=== PATIENT | female | born 1995 | race Caucasian/White ===

== ENCOUNTER 2020-12-19 10:30 | Emergency (ER) | payer MEDICAID ==
[~2020-12-19] VITALS: Ht 160 cm; Wt 66.3 kg
[2020-12-19] MEDS ORDERED: SODIUM CHLORIDE 0.9% 1,000ML IVBOLUS ONE (11:00)
--- NOTE | 2020-12-19 11:12 | NUR ---
RN and MD assessment completed. IV started and NS 1 liter bolus started.
[2020-12-19 11:14] LABS: BASOPHILS % (AUTO) 1 % (0-1); EOSINOPHILS % (AUTO) 0 % (1-7); LYMPHOCYTES % (AUTO) 25 % (22-44); MEAN CORPUSCULAR HEMOGLOBIN 31.1 pg (27.0-34.8); MEAN CORPUSCULAR HGB CONC 34.5 g/dL (32.4-35.8); MEAN PLATELET VOLUME 8.9 fL (7.4-10.4); MONOCYTES % (AUTO) 11 % (2-9); NEUTROPHILS % (AUTO) 64 % (42-75); PLATELET COUNT 248 x10^3/uL (130-400); RED BLOOD COUNT 4.19 x10^6/uL (3.82-5.3); RED CELL DISTRIBUTION WIDTH 13.5 % (9.6-15.2)
[2020-12-19 11:15] LABS: ALANINE AMINOTRANSFERASE 91 U/L (12-78); ANION GAP 11 mmol/L (5-15); CALCIUM 8.6 mg/dL (8.5-10.1); CHLORIDE 107 mmol/L (98-107); CREATININE 0.54 mg/dL (0.55-1.02)
[2020-12-19 11:19] LABS: ALKALINE PHOSPHATASE 66 U/L (45-117); BILIRUBIN,TOTAL 0.3 mg/dL (0.2-1.0); TOTAL PROTEIN 8.3 g/dL (6.4-8.2)
--- NOTE | 2020-12-19 11:38 | NUR ---
IV fluids running well. Pt trying to rest with lights dimmed per her request. States she has not slept well for 2 nights due to feeling ill and drinking.
--- NOTE | 2020-12-19 13:30 | NUR ---
Meal tray brought into room and pt eating now. 300mL left on NS bolus and pt reminded to keep LUE straight for fluids to continue to infuse.
--- NOTE | 2020-12-19 13:44 | NUR ---
Break rn- pt resting in bed, iv fluids infusing, meal provided.
--- NOTE | 2020-12-19 14:10 | NUR ---
Pt states she feels less shaky after eating and IVF completed with site saline locked. Pt ready to go home. D/C paperwork not at charge desk and Dr. Lima states she is having SONYA Odom do this. Preeti Odom is currently off unit for meal break.
--- NOTE | 2020-12-19 14:15 | NUR ---
IV d/c'd and pt aware of wait for paperwork before leaving. Lights dimmed per pt request to attempt to sleep while waiting for d/c papers.
[2020-12-19 15:02] VITALS: BP 107/56
== END 2020-12-19 15:04 | disposition home or self-care (01) ==
LOC: ED 12:22
DX: F41.1 Generalized anxiety disorder (principal); E87.6 Hypokalemia; R74.01 Elevation of levels of liver transaminase levels
CPT/HCPCS: 36415; 80053; 83690; 84703; 85025; 96360; 96361; 99283; J7030